=== PATIENT | male | born 1965 | race Caucasian/White ===

== ENCOUNTER 2016-09-01 13:09 | Day surgery (SDC) | payer BC ==
--- NOTE | ~2016-09-01 | EGD ---
EGD REPORT [facility] [address] [id number] NAME: FELICIANO FERNANDES : 61 STATUS : REG [facility] PAT#: [id number] AGE: 51 ADM/REG DATE : 09/01/16 MR#: [id number] REPORT SERV DATE: 09/01/16 DICTATED BY: TORREY JARVIS DATE: 09/01/16 REPORT STATUS : Draft [facility]: [facility] DATE: 09/01/16 Endoscopy Center Patient Name: Feliciano Fernnades Date of : 1965 Attending MD: ANTIONE JARVIS MD Procedure Date No Time: 09/01/2016 Procedure: Upper GI endoscopy Indications: Dysphagia, Gastro-esophageal reflux disease Referring MD: ALEXIA ODELL MD Medicines: See the Anesthesia note for documentation of the administered medications Complications: No immediate complications. Estimated blood loss: None. Procedure: Pre-Anesthesia Assessment: - ASA Grade Assessment: III - A patient with severe systemic disease. - Prior to the procedure, a History and Physical was performed, and patient medications and allergies were reviewed. The patient's tolerance of previous anesthesia was also reviewed. The risks and benefits of the procedure and the sedation options and risks were discussed with the patient. All questions were answered, and informed consent was obtained. Prior Anticoagulants: The patient has taken no previous anticoagulant or antiplatelet agents. After reviewing the risks and benefits, the patient was deemed in satisfactory condition to undergo the procedure. After obtaining informed consent, the endoscope was passed under direct vision. Throughout the procedure, the patient's blood pressure, pulse, and oxygen saturations were monitored continuously. The GIF H190 [id number] was introduced through the mouth, and advanced to the second part of duodenum. The upper GI endoscopy was accomplished without difficulty. The patient tolerated the procedure well. Findings: The examined duodenum was normal. The entire examined stomach was normal. Biopsies were taken with a cold forceps for histology. The cardia and gastric fundus were normal on retroflexion. The examined esophagus was normal. A guidewire was placed and the scope was withdrawn. Dilation was performed with a Savary dilator with no resistance at 45 Fr, no resistance at 51 Fr and no resistance at 57 Fr. Estimated blood loss: none. EGD REPORT [address] [address] NAME: FELICIANO FERNANDES : [birth year] STATUS : REG [facility]#: [id number] AGE: 51 ADM/REG DATE : 09/01/16 MR#: [id number] REPORT SERV DATE: 09/01/16 DICTATED BY: TORREY JARVIS DATE: 09/01/16 REPORT STATUS : Draft TRANSCRIBED BY: [employer] DATE: 09/01/16 Impression: - Normal examined duodenum. - Normal stomach. Biopsied. - Normal esophagus. Dilated. Recommendation: - Patient has a contact number available for emergencies. The signs and symptoms of potential delayed complications were discussed with the patient. Return to normal activities tomorrow. Written discharge instructions were provided to the patient. - Regular diet. - Discharge patient to home. - Await pathology results. Procedure Code(s): --- Professional --- 15673, Esophagogastroduodenoscopy, flexible, transoral; with insertion of guide wire followed by passage of dilator(s) through esophagus over guide wire 53909, Esophagogastroduodenoscopy, flexible, transoral; with biopsy, single or multiple Diagnosis Code(s): --- Professional --- R13.10, Dysphagia, unspecified K21.9, Gastro-esophageal reflux disease without esophagitis CPT copyright 2013 [employer]. All rights reserved. The codes documented in this report are preliminary and upon prison classification counselor review may be revised to meet current compliance requirements. ANTIONE JARVIS MD 09/01/2016 3:03 PM This report has been signed electronically. Number of Addenda: 0 Note Initiated On: 09/01/2016 2:33 PM Scope Withdrawal Time 0 hours 0 minutes 0 seconds [id number] [place] [id number]
--- NOTE | ~2016-09-01 | EGD ---
EGD REPORT [facility] [address] [id number] NAME: FELICIANO FERNANDES : [birth year] STATUS : REG [facility] [place] PAT#: [id number] AGE: 51 ADM/REG DATE : 09/01/16 MR#: [id number] REPORT SERV DATE: 09/01/16 DICTATED BY: TORREY JARVIS DATE: 09/01/16 REPORT STATUS : Draft [facility]ANSCRIBED [facility]: [facility] DATE: 09/01/16 Endoscopy Center Patient Name: Feliciano Fernandes Date of : 1965 Attending MD: ANTIONE JARVIS MD Procedure Date No Time: 09/01/2016 Procedure: Colonoscopy Indications: Screening for colorectal malignant neoplasm, This is the patient's first colonoscopy Referring MD: ALEXIA ODELL MD Medicines: See the Anesthesia note for documentation of the administered medications Complications: No immediate complications. Estimated blood loss: None. Procedure: Pre-Anesthesia Assessment: - ASA Grade Assessment: III - A patient with severe systemic disease. - Prior to the procedure, a History and Physical was performed, and patient medications and allergies were reviewed. The patient's tolerance of previous anesthesia was also reviewed. The risks and benefits of the procedure and the sedation options and risks were discussed with the patient. All questions were answered, and informed consent was obtained. Prior Anticoagulants: The patient has taken no previous anticoagulant or antiplatelet agents. After reviewing the risks and benefits, the patient was deemed in satisfactory condition to undergo the procedure. After I obtained informed consent, the scope was passed under direct vision. Throughout the procedure, the patient's blood pressure, pulse, and oxygen saturations were monitored continuously. The PCF [id number] was introduced through the anus and advanced to the terminal ileum. The ileocecal valve, appendiceal orifice, terminal ileum and rectum were photographed. The entire colon was examined. The colonoscopy was performed without difficulty. The patient tolerated the procedure well. The quality of the bowel preparation was adequate. Findings: The perianal and digital rectal examinations were normal. The terminal ileum appeared normal. Non-bleeding internal hemorrhoids were found during retroflexion and were Grade I (internal hemorrhoids that do not prolapse). No other significant abnormalities were identified in a careful examination of the remainder of the colon. EGD REPORT [address] [address] NAME: FELICIANO FERNANDES : [birth year] STATUS : REG [facility]#: [id number] AGE: 51 ADM/REG DATE : 09/01/16 MR#: [id number] REPORT SERV DATE: 09/01/16 DICTATED BY: TORREY JARVIS DATE: 09/01/16 REPORT STATUS : Draft TRANSCRIBED BY: [employer] DATE: 09/01/16 Impression: - The examined portion of the ileum was normal. - Non-bleeding internal hemorrhoids. Recommendation: - Patient has a contact number available for emergencies. The signs and symptoms of potential delayed complications were discussed with the patient. Return to normal activities tomorrow. Written discharge instructions were provided to the patient. - Regular diet. - Discharge patient to home. - Continue present medications. - Repeat colonoscopy in 10 years for surveillance. Procedure Code(s): --- Professional --- 13606, Colonoscopy, flexible, proximal to splenic flexure; diagnostic, with or without collection of specimen(s) by brushing or washing, with or without colon decompression (separate procedure) Diagnosis Code(s): --- Professional --- K64.0, First degree hemorrhoids Z12.11, Encounter for screening for malignant neoplasm of colon CPT copyright 2013 [employer]. All rights reserved. The codes documented in this report are preliminary and upon steel rule inspector review may be revised to meet current compliance requirements. ANTIONE JARVIS MD 09/01/2016 3:20 PM This report has been signed electronically. Number of Addenda: 0 Note Initiated On: 09/01/2016 2:24 PM Scope Withdrawal Time 0 hours 8 minutes 40 seconds [id number] [place] [id number]
[~2016-09-01 13:09] MED LIST: CYANO1000T PO; GARLIC; LIPOTRIAD1 CAP PO; NEXIUM40 PO; RED YEAS1 PO; TOPXL50 PO; VITC500 PO; [UNRECOGNIZED DRUG - OTHER]
== END 2016-09-01 23:59 | disposition home or self-care (01) ==
LOC: DMU 13:09
PROVIDERS: Internal Medicine Gastroenterology
PROC: 0DJD8ZZ Inspection of Lower Intestinal Tract, Via Natural or Artificial Opening Endoscopic (ICD-10-PCS; principal; 2016-09-01 15:00)
PROC: 0D758ZZ Dilation of Esophagus, Via Natural or Artificial Opening Endoscopic (ICD-10-PCS; 2016-09-01 15:00)
PROC: 0DB68ZX Excision of Stomach, Via Natural or Artificial Opening Endoscopic, Diagnostic (ICD-10-PCS; 2016-09-01 15:00)
DX: Z12.11 Encounter for screening for malignant neoplasm of colon (principal); K29.50 Unspecified chronic gastritis without bleeding; K64.0 First degree hemorrhoids; K21.9 Gastro-esophageal reflux disease without esophagitis; I10 Essential (primary) hypertension; E78.00 Pure hypercholesterolemia, unspecified; E78.5 Hyperlipidemia, unspecified; G36.0 Neuromyelitis optica [Devic]; G35 Multiple sclerosis; G47.30 Sleep apnea, unspecified; H91.90 Unspecified hearing loss, unspecified ear; Z88.1 Allergy status to other antibiotic agents; Z90.49 Acquired absence of other specified parts of digestive tract; Z85.828 Personal history of other malignant neoplasm of skin; Z87.891 Personal history of nicotine dependence; Z79.899 Other long term (current) drug therapy; Z98.890 Other specified postprocedural states
CPT/HCPCS: 88305